=== PATIENT | female | born 1960 | race Caucasian/White ===

== ENCOUNTER 2017-09-09 14:00 | Inpatient (IN) | payer BC ==
[~2017-09-09] VITALS: Ht 177.8 cm; Wt 90.1 kg
[2017-09-16 16:30] VITALS: BP 148/93
[2017-09-16 17:04] LABS: BASOPHILS % (AUTO) 0.6 % (0.0-5.0); EOSINOPHILS % (AUTO) 0.7 % (0.0-8.0); HEMATOCRIT 45.9 % (36-48); LYMPHOCYTES % (AUTO) 28.5 % (21.0-51.0); MEAN CORPUSCULAR HEMOGLOBIN 31.7 pg (27.0-33.0); MEAN CORPUSCULAR HGB CONC 34.2 g/dL (32.0-36.0); MEAN CORPUSCULAR VOLUME 92.7 fL (79-99); MONOCYTES % (AUTO) 7.3 % (3.0-13.0); NEUTROPHILS % (AUTO) 62.9 % (40.0-77.0); NUCLEATED RED BLOOD CELLS 0.1 % (0.0-0.19); PLATELET COUNT (AUTO) 407 K/uL (130-400); RED BLOOD CELL COUNT(AUTO) 4.95 MIL/uL (4.00-5.50); RED CELL DISTRIBUTION WIDTH 12.8 % (11.0-15.5); WHITE BLOOD COUNT (AUTO) 7.1 K/uL (4.8-10.8)
[2017-09-16] MEDS ORDERED: LEVO100 PO (17:34)
[2017-09-17] VITALS (21 sets, daily range): BP systolic 130–158; BP diastolic 64–99
[2017-09-17] MEDS ORDERED: WATER FOR INJECTION,STERILE 20 ML VIAL IJ ONE (08:00)
[2017-09-17] MEDS ORDERED: LACTATED RINGERS 1000ML 1,000 ML IV ONE (08:57)
[2017-09-17] MEDS ORDERED: CALDOLOR 800MG+NS 250ML 250 ML IV ONE (09:03)
[2017-09-17] MEDS: CEFAZOLIN SODIUM 1 GM VIAL IVP ONE ×2 (09:11→11:25)
[2017-09-17] MEDS ORDERED: ROPIVACAINE 0.5% 5MG/ML 30ML IJ ONE (10:52)
[2017-09-17] MEDS ORDERED: ROCURONIUM BROMIDE 10MG/1ML 5ML VL ONE (10:55)
[2017-09-17] MEDS ORDERED: LIDOCAINE PF 2% 5ML ABBOJECT ONE (10:55)
[2017-09-17] MEDS ORDERED: PROPOFOL 10 MG/ML 20ML VIAL IV ONE ×2 (10:55→12:31)
[2017-09-17] MEDS ORDERED: MIDAZOLAM HCL 1 MG/ML 2ML VIAL ONE (10:55)
[2017-09-17] MEDS ORDERED: FENTANYL CITRATE PF 50 MCG/1 ML 2ML VIAL ONE (10:56)
[2017-09-17] MEDS ORDERED: FENTANYL CITRATE PF 50 MCG/1 ML 5ML AMP IV ONE (11:40)
[2017-09-17] MEDS ORDERED: GLYCOPYRROLATE 0.2 MG/ML 5 ML VIAL ONE (12:31)
[2017-09-17] MEDS ORDERED: NEOSTIGMINE 5MG/5ML SYR IV ONE (12:31)
[2017-09-17] MEDS ORDERED: SIMETHICONE 80 MG TAB.CHEW PO PRN (13:00)
[2017-09-17] MEDS ORDERED: MEPERIDINE-PF 75 MG/ML SYG IM PRN (13:00)
[2017-09-17] MEDS ORDERED: DIPH,PERTUSS(ACELL),TET VAC/PF 0.5 ML VIAL IM SCH (13:00)
[2017-09-17] MEDS ORDERED: DOCUSATE SODIUM 100 MG CAP PO PRN ×2 (13:00)
[2017-09-17] MEDS ORDERED: BISACODYL 10 MG SUPP.RECT RC PRN (13:00)
[2017-09-17] MEDS ORDERED: PROMETHAZINE HCL 25 MG/ML 1ML AMPULE IM PRN (13:00)
[2017-09-17] MEDS ORDERED: HYDROCODONE/ACETAMINOPHEN 5/325 MG TAB PO PRN ×2 (13:00)
[2017-09-17] MEDS ORDERED: MEPERIDINE-PF 25 MG/ML SYG ONE ×2 (13:04→13:20)
[2017-09-17] MEDS ORDERED: MORPHINE SULFATE 2 MG/ML 1ML SYG ONE (13:20)
[2017-09-17] MEDS: PROMETHAZINE HCL 25 MG/ML 1ML AMPULE IM PRN ×2 (13:32→15:53)
[2017-09-17] MEDS ORDERED: LABETALOL HCL 5 MG/ML 20ML VIAL IV ONE (13:58)
[2017-09-17] MEDS: DEXTROSE 5 %-0.45 % NACL 1,000 ML IV PRN (15:54)
[2017-09-17] MEDS: CALDOLOR 800MG+NS 250ML 250 ML IVPB SCH (19:53)
[2017-09-17] MEDS: SIMETHICONE 80 MG TAB.CHEW PO PRN (21:37)
[2017-09-17] MEDS: ACETAMINOPHEN-CODEINE 300/30MG TAB PO PRN (23:28)
[2017-09-18 00:05] VITALS: BP 134/78
[2017-09-18] MEDS: CALDOLOR 800MG+NS 250ML 250 ML IVPB SCH (03:29)
[2017-09-18] MEDS: DEXTROSE 5 %-0.45 % NACL 1,000 ML IV PRN (03:30)
[2017-09-18 04:05] VITALS: BP 109/59
[2017-09-18 06:33] LABS: HEMATOCRIT 33.8 % (36-48); MEAN CORPUSCULAR HEMOGLOBIN 32.2 pg (27.0-33.0); MEAN CORPUSCULAR HGB CONC 34.7 g/dL (32.0-36.0); MEAN CORPUSCULAR VOLUME 92.7 fL (79-99); PLATELET COUNT (AUTO) 287 K/uL (130-400); RED BLOOD CELL COUNT(AUTO) 3.64 MIL/uL (4.00-5.50); RED CELL DISTRIBUTION WIDTH 12.8 % (11.0-15.5); WHITE BLOOD COUNT (AUTO) 9.5 K/uL (4.8-10.8)
[2017-09-18 07:13] VITALS: BP 102/64
[2017-09-18] MEDS: ACETAMINOPHEN-CODEINE 300/30MG TAB PO PRN ×2 (08:25→12:57)
[2017-09-18] MEDS: SIMETHICONE 80 MG TAB.CHEW PO PRN (09:42)
[2017-09-18 11:07] VITALS: BP 119/81
[2017-09-18] MEDS ORDERED: IBUPROFEN 800 MG TAB PO SCH (13:00)
== END 2017-09-18 13:40 | disposition home or self-care (01) | DRG 743 ==
LOC: DAHIP 09-17 07:44 → EDSTATUS 09-17 14:00 → WSH 09-17 14:25
PROVIDERS: ADMIT Obstetrics & Gynecology; ATTEND Obstetrics & Gynecology
PROC: 0UT90ZZ Resection of Uterus, Open Approach (ICD-10-PCS; principal; 2017-09-17 11:42)
PROC: 3E0234Z Introduction of Serum, Toxoid and Vaccine into Muscle, Percutaneous Approach (ICD-10-PCS; 2017-09-17 11:42)
DX: N95.0 Postmenopausal bleeding (principal); Z23 Encounter for immunization
CPT/HCPCS: 36415; 85025; 85027; 86850; 86900; 86901; 88307; 90715; A4218; A4344; J0690; J1741; J2001; J2175; J2250; J2550; J2704; J2710; J2795; J3010; J3490; J7030; J7120